=== PATIENT | female | born 1970 | race African-American/Black ===

== ENCOUNTER 2017-03-31 14:22 | Emergency (ER) | payer MEDICAID ==
[~2017-03-31] VITALS: Ht 175.3 cm; Wt 128.0 kg
[2017-03-31] MEDS ORDERED: IBUPROFEN 600MG TABLET PO ONE (20:30)
[2017-03-31 23:01] VITALS: BP 143/90
== END 2017-03-31 22:58 | disposition home or self-care (01) ==
LOC: ER 15:54
DX: S90.122A Contusion of left lesser toe(s) without damage to nail, initial encounter (principal); Z90.49 Acquired absence of other specified parts of digestive tract; W19.XXXA Unspecified fall, initial encounter; Y93.89 Activity, other specified; Y92.89 Other specified places as the place of occurrence of the external cause; Y99.8 Other external cause status
CPT/HCPCS: 73660; 99284; Z7610